=== PATIENT | male | born 2005 | race African-American/Black ===

== ENCOUNTER 2024-06-01 16:29 | Emergency (ER) | payer OTHER, SELFPAY ==
[2024-06-01 16:29] VITALS: BP 144/75
[2024-06-01 16:31] VITALS: BP 144/75
[2024-06-01 17:00] VITALS: BP 127/65
--- NOTE | 2024-06-01 17:27 | ED.GENMED ---
History of Present Illness
General
Chief Complaint: Abdominal Symptoms
Time Seen by Provider: 06/01/24 17:06
History of Present Illness
History of Present Illness:
18-year-old male history of asthma presenting with nausea vomiting upper abdominal pain starting today. Patient reports mild cough started last night. Patient reports subjective fever today. Patient denies diarrhea or urinary symptoms. No known
sick contacts.
Phy Exam
Physical Exam
Physical Exam:
General: Alert, no acute distress, well-appearing
Head: NCAT
Eyes: clear conjunctiva
Neck: supple
Cardiac: regular rate and rhythm, no murmur
Lungs: clear to auscultation bilaterally. No wheezes, rales, or rhonchi. Speaking full unlabored sentences. No respiratory distress.
Abdomen: soft, nondistended nontender. No rebound or guarding.
MSK: no lower extremity edema bilaterally. No deformity
Skin: warm, dry
Neuro: Alert and oriented x3. no focal deficits
Course
Orders/Labs/Results
Orders:
Orders
06/01/24 17:26
0.9% Sodium Chloride 1000 ml [Nss] 1,000 ml IV BOLUS
Famotidine [Pepcid] 20 mg IV NOW STA
Ondansetron Injectable [Zofran] 4 mg IV NOW STA
06/01/24 17:34
CBC/With Diff [Complete Blood Count/With Diff] Urgent
CMP [Comprehensive Metabolic Panel] Urgent
Lipase Urgent
Influenza A+B Rapid Molecular Urgent
HAILE Source: Nasal Swab
Specimen Description:
Abnormal Lab Results
06/01/24
17:34
Absolute Neuts (auto) 7.2 H 10^3/uL
(1.4-6.5)
Absolute Lymphs (auto) 0.6 L 10^3/uL
(1.2-3.4)
Absolute Monos (auto) 0.7 H 10^3/uL
(0.1-0.6)
Neutrophils % 83.2 H %
(42.2-75.2)
Lymphocytes % 7.1 L %
(20.5-51.1)
Glucose 119 H mg/dl
(70-99)
Total Bilirubin 2.5 H mg/dl
(0.2-1.3)
06/01/24 17:34
06/01/24 17:34
Vital Signs
Initial and Last Documented VS:
Initial Vital Signs
BP
144/75
06/01/24 16:29
Last Documented Vital Signs
Temp Pulse Resp BP Pulse Ox
97.9 F 80 16 123/49 100
06/01/24 16:31 06/01/24 16:31 06/01/24 16:31 06/01/24 18:00 06/01/24 18:45
MDM/Problems Addressed
Differential Diagnosis Includes:
Electrolyte abnormality, KIRSTIE, pancreatitis, gastritis, viral syndrome. Low suspicion for pneumonia given lungs clear to auscultation, afebrile, not tachycardic, symptoms started yesterday, immunocompetent.
MDM/Problems Addressed:
18-year-old male presenting with upper abdominal pain, nausea vomiting starting today. Abdomen soft nondistended nontender. Labs reviewed. Electrolytes, creatinine, LFTs, lipase within normal limits. WBC 8.6. Flu negative On reevaluation,
patient reports improvement in symptoms. Patient tolerating p.o. with no episodes of vomiting in the ER. Hemodynamically stable. Stable to discharge home with PCP follow-up
*Critical Care Note
Total Time (30-74mins, 75-104mins- exclusive of procedures): Not Applicable
ED Attending Note
-
Portions of this chart may have been created with voice recognition software.� Occasional wrong word or��sound alike� substitutions may have occurred due to the inherent limitations of voice recognition software.
Discharge Plan
Departure
Patient Disposition: Home (Routine Discharge)
Date of Disposition: 06/01/24
Time of Disposition: 19:07
Patient with high blood pressure during this ER visit?: Yes
Discharge Problem:
Nausea & vomiting
Instructions: Nausea and vomiting in adults
Prescriptions:
New
ondansetron 4 mg tablet,disintegrating
4 mg PO TID 5 Days Qty: 15 0RF
Activity Restrictions/Additional Instructions:
Take zofran as needed for nausea/vomiting
Take pepcid and maalox as needed for upper abdominal pain
Follow up with primary care doctor in 2-3 days
Return to the emergency department for inability to tolerate liquids or new/worsening symptoms
Interventions
Interventions:
*Risk Screen - Suicide Last Done: 06/01/24 16:31
*General Assessment Last Done: 06/01/24 16:31
*Neglect/Abuse Screening Last Done: 06/01/24 16:31
*ED COVID-19 Vaccine History Last Done: 06/01/24 16:31
*Nursing Disposition Last Done: 06/01/24 19:40
ZX-Qrblck-Xzmhlnrvoc Assessment Last Done: 06/01/24 16:43
Discharge Date and Time
Discharge Date/Time: 06/01/24 19:41
Print Language: PORTUGUESE
[2024-06-01] MEDS: NSS 1000 IV (17:35)
[2024-06-01] MEDS: ZOFRAN 4 MG IV (17:35)
[2024-06-01] MEDS: PEPCID 20 MG IV (17:36)
[2024-06-01 17:59] LABS: % Basophils 0.5 % (0-2); % Eosinophils 0.9 % (0-6); % Immature Granulocytes 0.3 % (0-0.5); % Lymphocytes 7.1 % (20.5-51.1); % Neutrophils 83.2 % (42.2-75.2); Absolute Eosinophils 0.1 10^3/uL (0-0.7); Absolute Lymphocytes 0.6 10^3/uL (1.2-3.4); Absolute Monocytes 0.7 10^3/uL (0.1-0.6); Absolute Neutrophils 7.2 10^3/uL (1.4-6.5); Hematocrit 49.4 % (39.0-52.0); Hemoglobin 16.9 g/dL (13.0-18.0); Mean Corp Hgb Conc. 34.2 g/dL (33.0-37.0); Mean Corpuscular Hgb 29.5 pg (27.0-31.0); Mean Corpuscular Volume 86.4 fL (80.0-94.0); Mean Platelet Volume 9.8 fL (7.4-10.4); Nucleated Red Blood Cells % 0 % (-); Platelet Count 225 10^3/uL (130-400); Red Blood Cell Count 5.72 10^6/uL (4.70-6.10); Red Cell Dist. Width 12.2 % (11.5-14.5); White Blood Cell Count 8.6 10^3/uL (4.8-10.8)
[2024-06-01 18:00] VITALS: BP 123/49
[2024-06-01 18:10] LABS: ALT (SGPT) 34 U/L (0-50); AST (SGOT) 34 U/L (17-59); Alkaline Phosphatase 120 U/L (38-126); Blood Urea Nitrogen 15 mg/dl (9-20); Calcium 9.3 mg/dl (8.4-10.2); Carbon Dioxide 29 mmol/L (22-30); Chloride 100 mmol/L (98-107); Glucose 119 mg/dl (70-99); Lipase 41 U/L (23-300); Potassium 4.7 mmol/L (3.5-5.1); Sodium 135 mmol/L (135-145); Total Bilirubin 2.5 mg/dl (0.2-1.3); Total Protein 6.6 g/dl (6.3-8.2); eGFR > 60.00
== END 2024-06-01 19:41 | disposition home or self-care (01) ==
LOC: EMR 16:29
PROVIDERS: EMERGENCY PHYSICIAN Emergency Medicine
DX: R11.2 Nausea with vomiting, unspecified (principal); R10.10 Upper abdominal pain, unspecified; J45.909 Unspecified asthma, uncomplicated
CPT/HCPCS: 96374; 96375; 96361; 99284; 80053; 83690; 85025; 87502